=== PATIENT | female | born 1975 | race Caucasian/White ===

== ENCOUNTER 2023-12-30 08:12 | Outpatient (CLI) | payer SELFPAY ==
--- NOTE | 2023-12-30 08:23 | MM_ITS ---
WS: [id number] SCREENING DIGITAL TOMOSYNTHESIS MAMMOGRAM WITH CAD HISTORY: SCREENING COMPARISON: 06/09/2014 Bilateral CC and MLO with tomosynthesis views submitted. Synthetic mammography reviewed. Computer aid ed detection analyzed. Breast composition: There are scattered areas of fibroglandular density. No suspicious masses, microc alcifications or architectural distortion. Stable asymmetries in the upper outer quadrant of each best ast. There are also a few scattered intramammary lymph nodes which are stable. No suspicious grouping of calcifications. MM/[id number] IMPRESSION: BI-RADS: 2-Benign FOLLOW UP: 1 Year Follow-up
== END 2023-12-30 08:13 | disposition home or self-care (01) ==
LOC: RAD 08:15
PROVIDERS: PCP Family Medicine; Visit Provider Advanced Practice Midwife
DX: Z12.31 Encounter for screening mammogram for malignant neoplasm of breast (principal)
CPT/HCPCS: 77063; 77067